=== PATIENT | female | born 1990 | race Caucasian/White ===

== ENCOUNTER 2022-05-30 17:07 | Emergency (ER) | payer OTHER ==
[2022-05-30 17:22] VITALS: BP 137/80; PULSE 85; RESP 17; TEMP 98.2; BMI 23.7
[2022-05-30 22:04] LABS: HCG,QUALITATIVE URINE Negative
[2022-05-30 22:07] LABS: EPI CELLS 30 /uL (0-25.1); HYALINE CASTS 2 /uL (0-3.1); PH,URINE 6.5 (5.0-8.0); URINE APPEARANCE CLOUDY; URINE BACTERIA >9,000 /uL (0-1359); URINE BILIRUBIN NEGATIVE (NEGATIVE); URINE COLOR YELLOW; URINE GLUCOSE (UA) NEGATIVE (NEGATIVE); URINE KETONE NEGATIVE (NEGATIVE); URINE LEUK ESTERASE 3+ (NEGATIVE); URINE NITRITE POSITIVE (NEGATIVE); URINE PROTEIN 1+ (NEGATIVE); URINE RBC 99 /uL (0-23.9); URINE WBC 3379 /uL (0-25.8)
== END 2022-05-31 00:51 | disposition home or self-care (01) ==
LOC: JER 17:07
DX: N30.01 Acute cystitis with hematuria (principal)
CPT/HCPCS: 81003; 84703; 87086; 87186; 99283-25